=== PATIENT | male | born 1965 | race Caucasian/White ===

== ENCOUNTER → 2020-03-15 | Outpatient (CLI) | payer BC | END | disposition home or self-care (01) | LOC: LABPAT 12:46 | PROVIDERS: ATTEND Orthopaedic Surgery | DX: Z01.812 Encounter for preprocedural laboratory examination (principal) | CPT/HCPCS: 87070 ==

== ENCOUNTER 2020-04-09 11:54 | Day surgery (SDC) | payer BC ==
[2020-04-05 09:46] VITALS: BMI 35.7
--- NOTE | 2020-04-08 09:31 | HP ---
HISTORY AND PHYSICAL CHIEF COMPLAINT: Right knee pain. 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 He is having pain that increases with prolonged activity and stairs. He notes popping and giving way. He has tried medications in addition to injections with only partial temporary relief. He has also tried weight loss. PAST MEDICAL HISTORY: Significant for hypercholesterolemia, hypertension, and arthritis. PAST SURGICAL HISTORY: Significant for left knee arthroscopy. CURRENT MEDICATIONS: Crestor, Ally, Toprol, Actos. He denies drug allergies. FAMILY HISTORY: Noncontributory. SOCIAL HISTORY: Significant for previous tobacco use. 16 POINT REVIEW OF SYSTEMS: Otherwise reviewed and is noncontributory. PHYSICAL EXAMINATION: On examination, the patient is approximately 5 foot 10, 255 pounds of endomorphic habitus. HEENT: Exam is nonfocal. NECK: Supple. He has painless passive motion of the right hip. Straight leg raise is negative. Active motion right knee -12 to 95 degrees of flexion. He has a moderate effusion. He is tender about the medial joint line. Collaterals are stable, Wong is negative, Birdie's is equivocal. He has genu varum alignment. He does have an antalgic gait pattern. His distal neurovascular appears intact in the right lower extremity. Weightbearing notch, lateral and Merchant views of the right knee obtained in the office show severe medial compartment and patellofemoral compartment osteoarthrosis with [id number] changes. IMPRESSION: 1. Right knee severe medial patellar medial and patellofemoral compartment osteoarthrosis. 2. Increased body mass index. RECOMMENDATIONS: I talked to the patient at length regarding his condition and treatment options. At this point, he remains quite symptomatic because of pain related to his osteoarthrosis despite previous extensive conservative treatment. After thorough discussion, he opts to proceed with surgery. We will plan to proceed with right total knee arthroplasty. Risks and benefits were discussed at length in layman's terms. We will institute DVT prophylaxis postoperatively. The patient underwent preoperative medical evaluation by Dr. Vora. PETER / JANEY: [id number] /
[~2020-04-09 11:54] MED LIST: ACETAMINOPHEN TAB 500 MG TAB PO PRN; HYDROmorphone 0.5 MG/0.5 ML SYRINGE IVP PRN; LIDOCAINE 1% (10MG/ML) FOR IV START INTRADERMA PRN; MELOXICAM 7.5 MG TAB PO PRN; ONDANSETRON 4 MG/2 ML VIAL IVP ONE; TRANEXAMIC ACID 1,000 MG in SODIUM CHLORIDE 0.9% 100 ML IVPB PRN
[2020-04-09 12:28] LABS: Glucose,Whole Blood 143 mg/dL (75-99)
[2020-04-09] MEDS: LACTATED RINGERS 1,000 ML IV SCH (12:30)
[2020-04-09] MEDS ORDERED: DEXAMETHASONE SOD PHOSPHATE 4 MG/ML 1 ML VIAL IV ONE (12:35)
[2020-04-09] MEDS ORDERED: MIDAZOLAM 2 MG/2 ML VIAL IV ONE (12:41)
[2020-04-09] MEDS ORDERED: ROPIVACAINE 0.2%-NS ON-Q PUMP 1,090 MG, EMPTY PAIN BALL 1 EACH MISCELLANE PRN (12:55)
--- NOTE | 2020-04-09 12:57 | P.ANPRN ---
Procedure Note - Anesthesia - Nerve Block Performed Right Adductor Canal Time Out Performed: Yes (12:40) Date of Procedure: 04/09/20 Procedure Start Time: :40 Procedure Stop Time: : Location of Patient: PreOp Indication: Acute Post-Operative Pain, Requested by Surgeon (Dr Carmona) Sedation Type: Sedate with meaningful contact maintained Preparation: Sterile Prep, Sterile Dressing Position: Supine Catheter: Indwelling Needle Types: Pajunk Needle Gauge: 21 Ultrasound used to visualize needle placement: Yes Ultrasound used to observe medication spread: Yes Injectate: 0.5% Ropivacaine (see comment for volume) (20cc) Blood Aspirated: No Pain Paresthesia on Injection Noted: No Resistance on Injection: Normal Image Stored and Saved: Yes Events: Uneventful and Well Tolerated
[2020-04-09] MEDS ORDERED: ROPIVACAINE 246.25 MG, EPINEPHrine 0.5 MG, KETOROLAC 30 MG, cloNIDine HCL/PF 80 MCG, WA... MISCELLANE ONE ×5 (13:18)
[2020-04-09] MEDS ORDERED: fentaNYL (PF) 50 MCG/ML 2 ML AMP ONE (13:57)
[2020-04-09] MEDS ORDERED: PROPOFOL 10 MG/ML 20 ML VIAL IV ONE (13:57)
[2020-04-09] MEDS ORDERED: SODIUM CHLORIDE 0.9% 100 ML BAG ONE (13:57)
[2020-04-09] MEDS ORDERED: MIDAZOLAM 2 MG/2 ML VIAL ONE (13:57)
[2020-04-09] MEDS ORDERED: TRANEXAMIC ACID 1,000 MG/10 ML VIAL ONE (13:57)
[2020-04-09] MEDS ORDERED: LACTATED RINGERS 1,000 ML IV ONE (15:04)
[2020-04-09] MEDS ORDERED: HYDROmorphone 1 MG/ML 1 ML SYRINGE IVP PRN (15:56)
[2020-04-09] MEDS ORDERED: traMADol 50 MG TAB PO PRN (15:56)
[2020-04-09] MEDS ORDERED: ONDANSETRON 4 MG/2 ML VIAL IVP PRN (15:56)
[2020-04-09] MEDS ORDERED: ACETAMINOPHEN TAB 325 MG TAB PO PRN (15:56)
[2020-04-09] MEDS ORDERED: NALOXONE 0.4 MG/ML 1 ML VIAL IV PRN (15:56)
[2020-04-09] MEDS ORDERED: HYDROmorphone 0.5 MG/0.5 ML SYRINGE IVP PRN (15:56)
[2020-04-09] MEDS ORDERED: MAGNESIUM HYDROXIDE 2,400 MG/10 ML CUP PO PRN (15:56)
[2020-04-09] MEDS ORDERED: HYDROcodone/APAP 7.5-325MG 1 EACH TAB PO PRN (15:59)
--- NOTE | 2020-04-09 16:23 | P.OP ---
Date of Procedure: 04/09/20 Preoperative Diagnosis: Right knee severe tricompartmental osteoarthrosis Postoperative Diagnosis: Same Procedure(s) Performed: Right total knee arthroplastycementedposterior stabilized Implants: Depuy Attune size 7 cemented femoral component, size 7 cemented tibial component, 14 mm articular surface, 38 mm cemented patellar component. This a posterior stabilized implant. Anesthesia: regional, local, spinal Surgeon: Macho Carmona Administrator Of Home Health #1: Anup Paige Estimated Blood Loss (ml): 100 Pathology: other (Bone fragments) Condition: stable Disposition: PACU Indications for Procedure: The patient's 54-year-old male presents with progressive right knee pain secondary to osteoporosis despite conservative measures. Discussion of the risks and benefits of operative intervention versus continued conservative measures with patient. He opted to proceed with surgery. Operative risks to include infection, neurovascular injury, development of blood clots, possible fracture, possible component loosening, possible component failure and need for subsequent procedures was discussed. Informed consent was obtained. Operative Findings: As below Description of Procedure: The patient was brought to the operating room, and after induction of spinal anesthesia the right lower extremity was prepped and draped in a normal fashion. The tourniquet was inflated to 270 mm marker. A longitudinal incision extending 3 finger breaths above the superior pole of patella extending to the medial aspect the tibial tubercle was then made. The skin and subcutaneous tissues were divided sharply. Electrocautery was used for hemostasis. A medial parapatellar arthrotomy was performed. The medial soft tissues to include the superficial and deep portions of the medial collateral ligament were elevated subperiosteally. The patella was everted. A portion of the retropatellar fat pad was excised sharply. The anterior cruciate ligament was sacrificed. Blunt retractors were placed. A starting hole was made in the distal femur 1 cm anterior to the posterior cruciate ligament origin. An intramedullary femoral guide was then inserted planning on 5 valgus distal cut with 9 mm distal resection. The cutting block was pinned in place. The distal cut was then made. The posterior referencing sizing guide was utilized. I felt size 7 was most appropriate. 3 of external rotation was built into the system and verified off the trans-epicondylar axis and the posterior condyles. The cutting block was pinned in place. The anterior, posterior, and chamfer cuts then made. Bone fragments were removed. The intercondylar guide was placed and the notch cut was made with a sagittal saw. The bone block was removed in one fragment. The trial component was then placed. There is good anterior to posterior and medial to lateral fit. The distal peg holes were drilled. The trial component was removed. Attention was then paid towards preparing the proximal femur. An extra medullary guide was utilized in line with the tibial shaft and second metatarsal distally. I planned on to 2 mm resection from the medial compartment. The cutting block was pinned in place. The proximal tibial cut was then made. The bone was removed in one fragment. The remnants of the medial and lateral menisci were excised at the capsular junction with electrocautery. The tibia sized most appropriately at size 7. The trial femoral and tibial components were placed along with a 14 mm articular surface. I was able to obtain full flexion and extension with internal and external rotation. After several flexion and extension cycles, the tibial rotation was marked with electrocautery line with the medial one third of the tibial tubercle. Attention was then paid towards preparing the patella. A patella reamer was utilized taking stem to 14 mm of bone stock. A good flush cut was made. The patella sized most appropriately 38 mm. The peg holes were drilled. The trial components placed. I had good patellofemoral tracking with no hands technique. The trial components were then removed. The tibia was prepared in the appropriate rotation with appropriate drill and keel punch. The posterior osteophytes were removed with a curved osteotome. The flexion and extension gaps were checked and felt to be symmetric at 14 mm. A trial components were then removed. The posterior soft tissues were injected with ropivacaine. The bony surfaces were prepared with pulsatile lavage and dried. The tibial component was then cemented place was fully seated. Excess cement was removed. The femoral component cemented place and was fully seated. Excess cement was removed. The trial 14 mm articular surface was placed and the knee was put in full extension. The patella component was cemented place. After the cement had sufficiently hardened, the knee was again taken through a range of motion. Again I was able to obtain full flexion and extension with varus and valgus stress. The trial 14 mm articular surface was removed and the final one inserted. This was fully seated. Care was taken to avoid any soft tissue interposition. Pulsatile lavage was again utilized. The medial parapatellar arthrotomy was closed with #2 Ethibond suture. The tourniquet was deflated with approximately 70 minutes total tourniquet time. Final hemostasis was obtained with the cautery. There was minimal bleeding therefore a deep drain was not placed. The subcutaneous tissues were reapproximated with interrupted 2-0 Vicryl sutures. The skin was reapproximated with 3-0 subcuticular strata fix suture. Skin tape and adhesive was applied. A sterile dressing was applied. The patient was awoken from sedation and transferred to recovery room in good condition. Blood loss was estimated at 50 mL. No complications were incurred. Sponge and needle counts were correct at the end of the case. Tian GILMORE assisted during the major components of this case to include exposure, bone resection, implantation, and closure.
--- NOTE | 2020-04-09 16:44 | XR ---
EXAMINATION TYPE: XR knee limited RT DATE OF EXAM: 04/09/2020 COMPARISON: NONE HISTORY: Postop knee surgery TECHNIQUE: 2 views FINDINGS: There is right knee prosthesis. Components are in anatomic position. IMPRESSION: No complicating process seen.
[2020-04-09 16:56] LABS: Glucose,Whole Blood 154 mg/dL (75-99)
[2020-04-09] MEDS ORDERED: NAPROXEN 250 MG TAB PO PRN (19:18)
--- NOTE | 2020-04-09 19:29 | P.CONS ---
History of Present Illness - Reason for Consult Consult date: 04/09/20 Medical management Requesting physician: Macho Diaz - Chief Complaint Right total knee arthroplasty, hypertension, hyperlipidemia and diabetes - History of Present Illness 54-year-old male mildly overweight with past medical history of type 2 diabetes, hypertension, hyperlipidemia and obstructive sleep apnea who had injury of both knees at age 15 and 25 had developed to have significant damage and injury of the cartilage and ACL patient had conservative management for years and developed to have severe worsening [id number] of both knees worsening of the right than the left side ended up seen orthopedic and plan to do elective surgery of the right side which was done today successfully with no major complication. Patient was admitted to the floor after surgery hemodynamically stable pain is well controlled was started on Xarelto for an anticoagulation still on the pain management system for pain management along with hydrocodone at home meds were resume at this point. Review of Systems CONSTITUTIONAL: Well-developed no acute respiratory distress. EYES: No icterus sclerae, no conjunctivitis. EARS, NOSE, MOUTH, THROAT, and FACE: No sore throat, lymphadenopathy, carotid bruits or deformity. RESPIRATORY: No SOB cough or wheezes. CARDIOVASCULAR: No CP, Palpitation, PND, Orthopnea, or angina. GASTROINTESTINAL: No Abd pain, Nausea or vomiting, no Diarrhea or constipation, No GI Bleed, no distention or masses. GENITOURINARY: Negative for Hematuria or UTI, no kidney stones. INTEGUMENT/BREAST: Negative for any muscular injury with mild osteoarthritis.. Post right knee surgery HEMATOLOGIC/LYMPHATIC: Negative for bleed or purpura. MUSCULOSKELTAL: Negative for Myalgia or arthralgia. NEURLOGICAL: No LOC, Sz or syncope, blurred vision dizziness or abnormality.. BEHAVIORAL/PSYCH: Negative. ENDOCRINE: Negative. Social history: Patient does not smoke, narcotic abuse, no illicit drug use. His meds and live with his who works as a parcel post truck driver. Family history: His father is in his 79 had COPD, mother 76 of CAD, patient has 2 sister both are living and well 2 children with no major medical problem. Past Medical History Past Medical History: Diabetes Mellitus, Hypertension, Osteoarthritis (OA), Sleep Apnea/CPAP/BIPAP History of Any Multi-Drug Resistant Organisms: None Reported Past Surgical History: Hernia Repair Additional Past Surgical History / Comment(s): KIDNEY STONE REMOVED , UMBILICAL HERNIA , SURGERY FOR HEMATOMA -FOREHEAD , LEFT KNEE ARTHROSCOPIC , Past Anesthesia/Blood Transfusion Reactions: No Reported Reaction Smoking Status: Never smoker - Past Family History Mother Family Medical History: No Reported History Medications and Allergies Home Medications Medication Instructions Recorded Confirmed Type Ascorbic Acid [Vitamin C] 1,000 mg PO DAILY 04/05/20 04/09/20 History Cholecalciferol [Vitamin D3 (25 5,000 unit PO DAILY 04/05/20 04/09/20 History Mcg = 1000 Iu)] Metoprolol Succinate (ER) [Toprol 50 mg PO HS 04/05/20 04/09/20 History Xl] Multivitamins, Thera [Multivitamin 1 tab PO DAILY 04/05/20 04/09/20 History (formulary)] Naproxen Sod/Diphenhydramine 1 each PO HS PRN 04/05/20 04/09/20 History [Aleve Pm Caplet] Pioglitazone [Actos] 30 mg PO HS 04/05/20 04/09/20 History Rosuvastatin [Crestor] 20 mg PO HS 04/05/20 04/09/20 History Turmeric/Turmeric Root Extract 1 cap PO DAILY 04/05/20 04/09/20 History [Turmeric 450-50 mg Capsule] amLODIPine BES/OLMESARTAN MED 1 each PO HS 04/05/20 04/09/20 History [Ally 10-40 MG] Allergies Allergy/AdvReac Type Severity Reaction Status Date / Time No Known Allergies Allergy Verified 04/09/20 12:12 Physical Exam Vitals: Vital Signs Temp Pulse Pulse Resp BP BP Pulse Ox 04/09/20 18:26 98 F 85 19 133/81 95 04/09/20 18:00 79 16 130/81 96 04/09/20 17:30 83 16 133/82 96 04/09/20 17:00 72 16 115/62 96 04/09/20 16:45 75 16 114/62 96 04/09/20 16:30 70 18 112/58 96 04/09/20 16:18 97.1 F L 74 18 100/75 95 04/09/20 12:58 72 16 137/81 98 04/09/20 12:20 98.6 F 73 16 139/68 97 Intake and Output 04/09/20 04/09/20 04/09/20 06:59 14:59 22:59 Intake Total 1050 700 Output Total 750 Balance 1050 -50 Intake: IV 1050 700 Output: Urine 700 Estimated Blood Loss 50 Other: Weight 120.8 kg General Appearance: Alert, cooperative, no distress, appears stated age. Moderately overweight Neck HEENT: Supple, no lymphadenopathy, no thyroid enlargement, no carotid br uits. Lungs: Clear to auscultation without crackles or wheezes no rhonchi, no deformity. Chest Wall: Chest wall normal expansion with deep inspiration no tenderness and no deformity was found on exam, no costochondral pain or discomfort. Heart: Regular rate and rhythm, S1, S2 normal, no murmur, rub or gallop. Back: Symmetric, no curvature, ROM normal, no CVA tenderness. Abdomen: Soft, non-tender, bowel sounds active all four quadrants, no masses, no organomegaly. Extremities: Extremities normal, atraumatic, no cyanosis or edema. Right knee incision looks fine with no hematoma bleeding no Raissa tenderness. Pulses: 2+ and symmetric. Skin: Skin color, texture, tugor normal, no rashes or lesions. Neurologic: Alert oriented x3 cranial nerves II through XII intact, no motor deficit, no abnormal balance or gait. Results Labs: Abnormal Lab Results - Last 24 Hours (Table) 04/09/20 04/09/20 Range/Units 12:25 16:53 POC Glucose (mg/dL) 143 H 154 H (75-99) mg/dL Assessment and Plan Assessment: 1 status post right total knee arthroplasty: Successful surgery doing very well continue to watch patient with dynamic status, continue pain management, anticoagulation with Xarelto 10 mg a day for the next 2-4 weeks, resume home meds this point. 2 obstructive sleep apnea: Continue patient to use CPAP on regular basis. 3 hypertension: Patient has been doing very well on metoprolol along with amlodipine LOSARTAN 10/40 MG DAILY. 4 TYPE 2 DIABETES: ON PIOGLITAZONE 30 MG DAILY, ACCU-CHEK WITH SLIDING SCALES COVERAGE. 5 HYPERLIPIDEMIA: REMAIN ON CRESTOR 20 MG DAILY. 6 ANTICOAGULATION: CONTINUE PATIENT ON XARELTO. 7 GI PROPHYLAXIS: PATIENT WILL BE ON PEPCID 20 MG DAILY. 8 PAIN MANAGEMENT: CONTINUE PAIN MANAGEMENT SYSTEM ALONG WITH HYDROCODONE NEEDED. DR. DIAZ THANK YOU VERY MUCH FOR THE CONSULT IF I CAN BE ANY FURTHER HELP TO PLEASE LET ME KNOW.
[2020-04-09] MEDS ORDERED: diphenhydrAMINE 25 MG CAP PO PRN (19:31)
[2020-04-09] MEDS: ceFAZolin 3 GM in SODIUM CHLORIDE 0.9% 100 ML IVPB SCH (20:56)
[2020-04-09] MEDS ORDERED: METOPROLOL SUCCINATE (ER) 50 MG TAB.ER.24H PO SCH (21:00)
[2020-04-09] MEDS ORDERED: SENNOSIDES-DOCUSATE SODIUM 1 EACH TAB PO SCH (21:00)
[2020-04-09] MEDS ORDERED: amLODIPine 10 MG TAB PO SCH (21:00)
[2020-04-09] MEDS ORDERED: ATORVASTATIN 40 MG TAB PO SCH (21:00)
[2020-04-09] MEDS ORDERED: PIOGLITAZONE 30 MG TAB PO SCH (21:00)
[2020-04-09] MEDS ORDERED: LOSARTAN 50 MG TAB PO SCH (21:00)
[2020-04-10] MEDS: HYDROcodone/APAP 7.5-325MG 1 EACH TAB PO PRN ×3 (03:33→11:10)
[2020-04-10] MEDS: ceFAZolin 3 GM in SODIUM CHLORIDE 0.9% 100 ML IVPB SCH (05:48)
--- NOTE | 2020-04-10 05:54 | P.PN ---
Progress Note - Text Progress Note Date: 04/10/20 Postoperative day # 1 status post total knee arthroplasty, under spinal anesth esia, and adductor canal catheter placed for postoperative analgesia. Currently on ropivacaine 0.2% 8 mL per hour with continuous infusion. There is no erythema, and there is no tenderness at site of catheter insertion. VAS: 2/10 Breakthrough Meds: When necessary Percocet, as taken 5 mg of hydrocodone today Complications: None . Plan: Plan is to continue: Plans to continue the current settings. Patient will go home as planned.
[2020-04-10 06:41] LABS: Basophils % (A) 0 %; Eosinophils % (A) 0 %; HCT 39.6 % (39.0-53.0); HGB 13.1 gm/dL (13.0-17.5); Lymphocytes # (A) 1.9 k/uL (1.0-4.8); Lymphocytes % (A) 15 %; MCH 29.8 pg (25.0-35.0); MCHC 33.1 g/dL (31.0-37.0); MCV 89.9 fL (80.0-100.0); Mean Platelet Volume 7.4; Monocytes % (A) 8 %; Neutrophils # (A) 9.4 k/uL (1.3-7.7); Neutrophils % (A) 74 %; Platelet Count 224 k/uL (150-450); RDW 13.3 % (11.5-15.5); WBC 12.6 k/uL (3.8-10.6)
[2020-04-10] MEDS: LACTATED RINGERS 1,000 ML IV SCH (07:07)
[2020-04-10 07:21] LABS: Glucose,Whole Blood 73 mg/dL (75-99)
[2020-04-10 07:53] VITALS: BP 132/75; PULSE 71; RESP 16; TEMP 97.6
[2020-04-10] MEDS ORDERED: MULTIVITAMINS, THERA 1 EACH TAB PO SCH (09:00)
[2020-04-10] MEDS ORDERED: CHOLECALCIFEROL 1,000 UNIT TAB PO SCH (09:00)
[2020-04-10] MEDS ORDERED: RIVAROXABAN 10 MG TAB PO SCH (09:00)
[2020-04-10] MEDS ORDERED: ASCORBIC ACID 500 MG TAB PO SCH (09:00)
[2020-04-10] MEDS ORDERED: FAMOTIDINE 20 MG TAB PO SCH (09:00)
--- NOTE | 2020-04-10 09:55 | P.PN ---
Subjective Progress Note Date: 04/10/20 Principal diagnosis: Status post right total knee arthroplasty Patient is evaluated today at bedside, resting comfortably. His pain is well- controlled at this time. He did ambulate well with therapy. Currently denies any headaches, lightheadedness, chest pain or shortness of breath. Objective - Vital Signs Vital signs: Vital Signs Temp 97.6 F 04/10/20 06:56 Pulse 71 04/10/20 06:56 Resp 16 04/10/20 07:30 BP 132/75 04/10/20 06:56 Pulse Ox 97 04/10/20 06:56 Intake & Output 04/09/20 04/10/20 04/10/20 18:59 06:59 18:59 Intake Total 1750 450 Output Total 750 400 Balance 1000 50 Weight 120.8 kg 120.8 kg Intake: IV 1750 Intake, IV Titration 450 Amount Lactated Ringers 1,000 ml 450 @ 50 mls/hr IV .Q20H MATI Rx#:[id number] Output: Urine 700 400 Estimated Blood Loss 50 Other: # Voids 2 - Exam Right lower extremity: Incision is clean, dry, and intact. The exofin fusion tape is in good condition. There is minimal soft tissue swelling and ecchymosis surrounding the medial and lateral aspects of the incision. Calf is soft, no tenderness with palpation. Plantar flexion, dorsiflexion, EHL, FHL are intact. Sensory exam to light touch throughout the extremity is intact, dorsal pedis pulses 2+. - Labs CBC & Chem 7: 04/10/20 06:02 Labs: Abnormal Lab Results - Last 24 Hours (Table) 04/09/20 04/09/20 04/10/20 Range/Units 12:25 16:53 06:02 WBC 12.6 H (3.8-10.6) k/uL Neutrophils # 9.4 H (1.3-7.7) k/uL POC Glucose (mg/dL) 143 H 154 H (75-99) mg/dL 04/10/20 Range/Units 07:17 WBC (3.8-10.6) k/uL Neutrophils # (1.3-7.7) k/uL POC Glucose (mg/dL) 73 L (75-99) mg/dL Assessment and Plan Assessment: Status post right total knee arthroplasty Plan: Pain control, plan for discharge home on [place] 7.5 mg/325 mg DVT prophylaxis, Eliquis 2.5 mg twice a day for 2 weeks Wound care instructions were discussed Icing and elevating techniques discussed Medical recommendations Home health care after discharge Plan for discharge home today Time with Patient: Less than 30
--- NOTE | 2020-04-10 10:00 | P.DS ---
Providers Date of admission: 04/09/2020 Expected date of discharge: 04/10/20 Attending physician: Macho Carmona Primary care physician: Cornelio Vora [facility] Course: Date of admission: 04/09/2020 Date of discharge: 04/10/2020 Admission diagnosis: Status post right total knee arthroplasty Discharge diagnosis: Same Attending physician: Dr. Carmona Surgical procedures: Right total knee arthroplasty Brief history: Patient is a with D4-year-old male with a history of progressive primary right knee osteoarthritis. At this point patient has failed conservative treatment measures and has opted to proceed with a elective right total knee arthroplasty. Hospital course: Details of patient's surgery can be found in operative report. Patient tolerated the procedure well and was subsequently transported to orthopedic floor. Patient's orthopeidc and medical care was provided daily. Patient had daily laboratory tests performed for evaluation of overall blood counts. Patient had daily physical therapy to include strengthening range of motion as well as education with walker ambulation. Patient was treated with Eliquis for their postoperative DVT prophylaxis during their inpatient stay. Patient was noted to have a relatively uneventful postoperative course. Patient reported satisfactory pain control with oral pain medications by postoperative day 0. Patient showed satisfactory progress with physical therapy. Patient moved steadily through the program and had no difficulty meeting the goals by postoperative day 1. Given patient's otherwise satisfactory course and having met physical therapy goals, plan is to discharge patient home on postoperative day 1. Discharge condition/disposition: Patient will be discharged home in stable condition. Discharge medications: Instructions are given on resumption of patient's normal daily medications per primary care recommendation, in addition patient will be prescribed [place] 7.5 mg/325 mg, Colace 100 mg, Eliquis 2.5 mg. Discharge instructions: 1. Wound care and infection precautions, keep incision dry and covered while showering, no lotions, creams, moisturizers. No soaking, tubs, pools, hottubs. Do not scrub over the incision. 2. Weight-bear as tolerated with walker / cane until follow-up. 3. Ice and elevate when necessary. Do not exceed 20 minutes per hour with ice pack. 4. Utilize compression sleeve until seen at first follow up appointment. 5. Visiting nursing care. 6. Home physical therapy including home CPM. 7. Pain meds and anticoagulants per prescription. 8. Pain medication has potential to cause constipation. Increase oral fluid and fiber intake. Contact primary care provider if you have not had a bowel movement within 48 hours after discharge 9. No anti-inflammatory medication until discussed at first post operative visit, this including Motrin, Aleve, Mobic, Diclofenac 10. Follow up in office at 2 weeks postop with Tian Paige PA-C 11. Follow up with your primary care doctor 7-10 days after discharge. 12. Contact [facility] with any questions, . Procedures: Right total knee arthroplasty Patient Condition at Discharge: Good Plan - Discharge Summary Discharge Rx Participant: No New Discharge Prescriptions: New Apixaban [Eliquis] 2.5 mg PO BID #60 tab HYDROcodone/APAP 7.5-325MG [[place] 7.5] 1 - 2 each PO Q6HR PRN #42 tab PRN Reason: Pain Sennosides/Docusate Sodium [Senna Plus 8.6-50 mg Tablet] 1 each PO DAILY PRN #30 tablet PRN Reason: Constipation No Action Turmeric/Turmeric Root Extract [Turmeric 450-50 mg Capsule] 1 cap PO DAILY amLODIPine BES/OLMESARTAN MED [Ally 10-40 MG] 1 each PO HS Pioglitazone [Actos] 30 mg PO HS Rosuvastatin [Crestor] 20 mg PO HS Metoprolol Succinate (ER) [Toprol Xl] 50 mg PO HS Naproxen Sod/Diphenhydramine [Aleve Pm Caplet] 1 each PO HS PRN PRN Reason: FOR SLEEP AND PAIN Multivitamins, Thera [Multivitamin (formulary)] 1 tab PO DAILY Cholecalciferol [Vitamin D3 (25 Mcg = 1000 Iu)] 5,000 unit PO DAILY Ascorbic Acid [Vitamin C] 1,000 mg PO DAILY Discharge Medication List Ascorbic Acid [Vitamin C] 1,000 mg PO DAILY 04/05/20 [History] Cholecalciferol [Vitamin D3 (25 Mcg = 1000 Iu)] 5,000 unit PO DAILY 04/05/20 [History] Metoprolol Succinate (ER) [Toprol Xl] 50 mg PO HS 04/05/20 [History] Multivitamins, Thera [Multivitamin (formulary)] 1 tab PO DAILY 04/05/20 [History] Naproxen Sod/Diphenhydramine [Aleve Pm Caplet] 1 each PO HS PRN 04/05/20 [History] Pioglitazone [Actos] 30 mg PO HS 04/05/20 [History] Rosuvastatin [Crestor] 20 mg PO HS 04/05/20 [History] Turmeric/Turmeric Root Extract [Turmeric 450-50 mg Capsule] 1 cap PO DAILY 03/19 12/06 [History] amLODIPine BES/OLMESARTAN MED [Ally 10-40 MG] 1 each PO HS 04/05/20 [History] Apixaban [Eliquis] 2.5 mg PO BID #60 tab 04/10/20 [Rx] HYDROcodone/APAP 7.5-325MG [[place] 7.5] 1 - 2 each PO Q6HR PRN #42 tab 04/10/20 [Rx] Sennosides/Docusate Sodium [Senna Plus 8.6-50 mg Tablet] 1 each PO DAILY PRN #30 tablet 04/10/20 [Rx] Follow up Appointment(s)/Referral(s): Anup Paige PAC [PHYSICIAN AUTO MECHANIC SUPERVISOR] - 04/26/20 4:30 pm Cornelio Vora MD [Primary Care Provider] - 1 Week Activity/Diet/Wound Care/Special Instructions: Orthopedic Discharge Instructions: 1. Wound care and infection precautions, keep incision dry and covered while showering, no lotions, creams, moisturizers. No soaking, pools, hot tubs. Do not scrub over incision. 2. Weight-bear as tolerated with walker / cane until follow-up. 3. Ice and elevate when necessary. Do not exceed 20 minutes per hour with ice pack. 4. Utilize compression sleeve until seen at first follow up appointment. 5. Pain meds and anticoagulants per prescription. 6. Pain medication has potential to cause constipation. Increase oral fluid and fiber intake. Contact primary care provider if you have not had a bowel movement within 48 hours after discharge. 7. No anti-inflammatory medication until discussed at first post operative visit, this including Motrin, Aleve, Mobic, Diclofenac. 8. Follow up in office at 2 weeks postop with Tian Paige PA-C 9. Follow up with your primary care doctor 7-10 days after discharge. 10. Contact [facility] with any questions, . Discharge Disposition: HOME WITH HOME HEALTH SERVICES
[2020-04-10 11:49] LABS: Glucose,Whole Blood 206 mg/dL (75-99)
--- NOTE | 2020-04-10 14:03 | P.PN ---
Subjective 54-year-old male mildly overweight with past medical history of type 2 diabetes, hypertension, hyperlipidemia and obstructive sleep apnea who had injury of both knees at age 15 and 25 had developed to have significant damage and injury of the cartilage and ACL patient had conservative management for years and developed to have severe worsening osio-edz-wtur of both knees worsening of the right than the left side ended up seen orthopedic and plan to do elective surgery of the right side which was done today successfully with no major complication. Patient was admitted to the floor after surgery hemodynamically stable pain is well controlled was started on Xarelto for an anticoagulation still on the pain management system for pain management along with hydrocodone at home meds were resume at this point. 04/10: Patient was evaluated this morning, noted to be resting quite comfortably in bed, no acute distress, reports pain is well controlled. He denies complaints of chest pain or shortness of breath. He has been up with therapy. Incentive spirometer was encouraged, he continues on Eliquis for DVT prophylaxis, plans on discharge home today Objective - Vital Signs Vital signs: Vital Signs Temp 97.6 F 04/10/20 06:56 Pulse 71 04/10/20 06:56 Resp 16 04/10/20 07:30 BP 132/75 04/10/20 06:56 Pulse Ox 97 04/10/20 06:56 Intake & Output 04/09/20 04/10/20 04/10/20 18:59 06:59 18:59 Intake Total 1750 450 Output Total 750 400 Balance 1000 50 Weight 120.8 kg 120.8 kg Intake: IV 1750 Intake, IV Titration 450 Amount Lactated Ringers 1,000 ml 450 @ 50 mls/hr IV .Q20H MATI Rx#:[id number] Output: Urine 700 400 Estimated Blood Loss 50 Other: # Voids 2 - Exam General Appearance: Alert, cooperative, no distress, appears stated age. Neck HEENT: Supple, no lymphadenopathy, no thyroid enlargement, no carotid bruit s. Lungs: Clear to auscultation without crackles or wheezes no rhonchi, no deformity. Chest Wall: Chest wall normal expansion with deep inspiration no tenderness and no deformity was found on exam, no costochondral pain or discomfort. Heart: Regular rate and rhythm, S1, S2 normal, no murmur, rub or gallop. Back: Symmetric, no curvature, ROM normal, no CVA tenderness. Abdomen: Soft, non-tender, bowel sounds active all four quadrants, no masses, no organomegaly. Extremities: Extremities normal, atraumatic, no cyanosis or edema. Right knee incision looks fine with no hematoma bleeding no Raissa tenderness. Pulses: 2+ and symmetric. Skin: Skin color, texture, tugor normal, no rashes or lesions. Neurologic: Alert oriented x3 cranial nerves II through XII intact, no motor deficit, no abnormal balance or gait. - Labs CBC & Chem 7: 04/10/20 06:02 Labs: Abnormal Lab Results - Last 24 Hours (Table) 04/09/20 04/10/20 04/10/20 Range/Units 16:53 06:02 07:17 WBC 12.6 H (3.8-10.6) k/uL Neutrophils # 9.4 H (1.3-7.7) k/uL POC Glucose (mg/dL) 154 H 73 L (75-99) mg/dL 04/10/20 Range/Units 11:47 WBC (3.8-10.6) k/uL Neutrophils # (1.3-7.7) k/uL POC Glucose (mg/dL) 206 H (75-99) mg/dL Assessment and Plan Plan: 1 status post right total knee arthroplasty: Successful surgery doing very well continue to watch patient with dynamic status, continue pain management, anticoagulation with Xarelto 10 mg a day for the next 2-4 weeks, resume home meds this point. 2 obstructive sleep apnea: Continue patient to use CPAP on regular basis. 3 hypertension: Patient has been doing very well on metoprolol along with amlodipine LOSARTAN 10/40 MG DAILY. 4 TYPE 2 DIABETES: ON PIOGLITAZONE 30 MG DAILY, ACCU-CHEK WITH SLIDING SCALES COVERAGE. 5 HYPERLIPIDEMIA: REMAIN ON CRESTOR 20 MG DAILY. 6 ANTICOAGULATION: CONTINUE PATIENT ON XARELTO. 7 GI PROPHYLAXIS: PATIENT WILL BE ON PEPCID 20 MG DAILY. 8 PAIN MANAGEMENT: CONTINUE PAIN MANAGEMENT SYSTEM ALONG WITH HYDROCODONE NEEDED. DR. DIAZ THANK YOU VERY MUCH FOR THE CONSULT IF I CAN BE ANY FURTHER HELP TO PLEASE LET ME KNOW. The above impression and plan of care have been discussed and directed by signing physician. Alia Bernabe nurse practitioner acting as scribe for signing physician.
== END 2020-04-10 13:05 | disposition home health service (06) ==
LOC: OR 11:54 → 4SSUR 15:53 → OR 04-10 13:05
PROVIDERS: ATTEND Orthopaedic Surgery
DX: M17.11 Unilateral primary osteoarthritis, right knee (principal); M81.0 Age-related osteoporosis without current pathological fracture; I10 Essential (primary) hypertension; E11.9 Type 2 diabetes mellitus without complications; E78.00 Pure hypercholesterolemia, unspecified; E78.5 Hyperlipidemia, unspecified; E55.9 Vitamin D deficiency, unspecified; G47.33 Obstructive sleep apnea (adult) (pediatric); Z79.01 Long term (current) use of anticoagulants; Z99.89 Dependence on other enabling machines and devices; Z87.442 Personal history of urinary calculi; Z98.890 Other specified postprocedural states; Z87.891 Personal history of nicotine dependence; Z79.84 Long term (current) use of oral hypoglycemic drugs; Z79.899 Other long term (current) drug therapy; Z82.49 Family history of ischemic heart disease and other diseases of the circulatory system
CPT/HCPCS: 97110; 97161; 64448; 76942; 85025; 88300; 73560; 27447; C1776; C1713; J2250; J0171; J1100; J0690 ×2; J2405; J3010; J1885; J2795 ×2; J2704; J0735

== ENCOUNTER → 2021-03-17 | Outpatient (CLI) | payer BC | END | disposition home or self-care (01) | LOC: LABWHC1 08:44 | PROVIDERS: ATTEND Orthopaedic Surgery | DX: Z01.812 Encounter for preprocedural laboratory examination (principal); M17.12 Unilateral primary osteoarthritis, left knee | CPT/HCPCS: 87070 ==

== ENCOUNTER 2021-04-08 11:01 | Day surgery (SDC) | payer BC ==
--- NOTE | 2021-04-07 09:46 | HP ---
HISTORY AND PHYSICAL CHIEF COMPLAINT: Left knee pain. HISTORY OF PRESENT ILLNESS: The patient is a 55-year-old male who presents with progressive left knee pain for the past several years, worsening recently. He notes medial pain with weightbearing activities. He has intermittent swelling, locking, and giving out. He has tried medications and other modalities without much relief. PAST MEDICAL HISTORY: Significant for arthritis, hypertension, and vzn-nuoqiki-rebjitqqd diabetes. SURGICAL HISTORY: Significant for right total knee arthroplasty, left knee arthroscopy. CURRENT MEDICATIONS: Ally, Crestor, Toprol, and Actos. ALLERGIES: He denies drug allergies. FAMILY HISTORY: Noncontributory. SOCIAL HISTORY: Significant for previous tobacco use. However he quit in 1984. REVIEW OF SYSTEMS: Sixteen-point review of systems otherwise reviewed and is noncontributory. PHYSICAL EXAMINATION: On examination, the patient is approximately 5 foot 10, 240 pounds of endomorphic habitus. HEENT exam is nonfocal. NECK is supple. He has painless passive motion of his left hip. Straight leg raise is negative. Active motion left knee full -10 to 100 degrees of flexion. He has a mild effusion. He is tender over the medial joint line. Collaterals are stable, Wong is negative, Birdie's is equivocal. He has genu varum alignment. His distal neurovascular exam appears intact in the left lower extremity. Weightbearing notch, lateral and Merchant views left knee obtained in the office show severe medial patellofemoral compartment narrowing with stac-zz-jchu changes and subchondral sclerosis. IMPRESSION: Left knee severe medial and patellofemoral compartment osteoarthrosis. RECOMMENDATIONS: I talked to the patient at length regarding his condition along with treatment options. At this point, he remains quite symptomatic despite conservative measures. After thorough discussion, he opts to proceed with surgery. We will plan to proceed with left total knee arthroplasty. Risks and benefits were discussed at length in layman's terms. We will institute DVT prophylaxis. MMODL / IJN: [id number] /
[2021-04-07 10:43] VITALS: BMI 34.5
[2021-04-08 11:43] LABS: Glucose,Whole Blood 234 mg/dL (75-99)
[2021-04-08] MEDS: LACTATED RINGERS 1,000 ML IV SCH (11:48)
[2021-04-08] MEDS ORDERED: fentaNYL (PF) 50 MCG/ML 5 ML AMP IV ONE (12:01)
[2021-04-08] MEDS ORDERED: MIDAZOLAM 2 MG/2 ML VIAL IV ONE (12:01)
[2021-04-08] MEDS ORDERED: PROPOFOL 10 MG/ML 20 ML VIAL IV ONE (13:25)
[2021-04-08] MEDS ORDERED: ePHEDrine 50 MG/ML 1 ML AMP ONE (13:25)
[2021-04-08] MEDS ORDERED: TRANEXAMIC ACID 1,000 MG/10 ML VIAL ONE (13:25)
[2021-04-08] MEDS ORDERED: MIDAZOLAM 2 MG/2 ML VIAL ONE (13:25)
[2021-04-08] MEDS ORDERED: SODIUM CHLORIDE 0.9% (PF) 10 ML VIAL ONE (13:25)
[2021-04-08] MEDS ORDERED: fentaNYL (PF) 50 MCG/ML 2 ML AMP ONE (13:25)
[2021-04-08] MEDS ORDERED: ROPIVACAINE 5 MG/ML 30 ML VIAL ONE (13:25)
[2021-04-08] MEDS ORDERED: SODIUM CHLORIDE 0.9% 100 ML BAG ONE (13:25)
[2021-04-08] MEDS ORDERED: ceFAZolin 1,000 MG in SODIUM CHLORIDE 0.9% 1,000 ML IRRIGATION ONE (13:54)
[2021-04-08] MEDS ORDERED: HYDROcodone/APAP 5-325MG 1 EACH TAB PO PRN (15:25)
[2021-04-08] MEDS ORDERED: NALOXONE 0.4 MG/ML 1 ML VIAL IV PRN (15:25)
[2021-04-08] MEDS ORDERED: HYDROmorphone 0.5 MG/0.5 ML SYRINGE IVP PRN (15:25)
[2021-04-08] MEDS ORDERED: LACTATED RINGERS 1,000 ML IV ONE (15:51)
--- NOTE | 2021-04-08 15:59 | P.OP ---
Date of Procedure: 04/08/21 Preoperative Diagnosis: Left knee severe tricompartmental osteoarthrosis Postoperative Diagnosis: Same Procedure(s) Performed: Left total knee arthroplastyposterior stabilizedcemented Implants: Depuy Attune size 7 cemented femoral component, size 7 cemented tibial component, 13 mm articular surface, 38 mm cemented patellar component. This is a posterior stabilized implant. Anesthesia: regional, spinal Surgeon: Macho Carmona Concrete Mixer Truck Driver #1: Rasheed Lopez Estimated Blood Loss (ml): 50 Pathology: other (Bone fragments) Condition: stable Disposition: PACU Indications for Procedure: The patient's 55-year-old male who presents with progressive left knee pain secondary to osteoarthrosis despite conservative measures. A discussion of the risks and benefits of operative intervention versus continued conservative measures was made with patient. He opted proceed with surgery. Operative risks to include infection, neurovascular injury, development blood clots, fracture, component loosening/failure need for subsequent procedures was discussed. Informed consent was obtained. Operative Findings: As below Description of Procedure: The patient was brought to the operating room, and after induction of spinal anesthesia the left lower extremity was prepped and draped in a normal fashion. The tourniquet was inflated to 270 mm marker. A longitudinal incision extending 3 finger breaths above the superior pole of patella extending to the medial aspect the tibial tubercle was then made. The skin and subcutaneous tissues were divided sharply. Electrocautery was used for hemostasis. A medial parapatellar arthrotomy was performed. The medial soft tissues to include the superficial and deep portions of the medial collateral ligament were elevated subperiosteally. The patella was everted. A portion of the retropatellar fat pad was excised sharply. The anterior cruciate ligament was sacrificed. Blunt retractors were placed. A starting hole was made in the distal femur 1 cm anterior to the posterior cruciate ligament origin. An intramedullary femoral guide was then inserted planning on 5 valgus distal cut with 9 mm distal resection. The cutting block was pinned in place. The distal cut was then made. The posterior referencing sizing guide was utilized. I felt size 7 was most appropriate. 3 of external rotation was built into the system and verified off the trans-epicondylar axis and the posterior condyles. The cutting block was pinned in place. The anterior, posterior, and chamfer cuts then made. Bone fragments were removed. The intercondylar guide was placed and the notch cut was made with a sagittal saw. The bone block was removed in one fragment. The trial component was then placed. There is good anterior to posterior and medial to lateral fit. The distal peg holes were drilled. The trial component was removed. Attention was then paid towards preparing the proximal femur. An extra medullary guide was utilized in line with the tibial shaft and second metatarsal distally. I planned on 2 mm resection from the medial compartment. The cutting block was pinned in place. The proximal tibial cut was then made. The bone was removed in one fragment. The remnants of the medial and lateral menisci were excised at the capsular junction with electrocautery. The tibia sized most appropriately at size 7. The trial femoral and tibial components were placed along with a 13 mm articular surface. I was able to obtain full flexion and extension with internal and external rotation. After several flexion and extension cycles, the tibial rotation was marked with electrocautery line with the medial one third of the tibial tubercle. Attention was then paid towards preparing the patella. A patella reamer was utilized taking stem to 14 mm of bone stock. A good flush cut was made. The patella sized most appropriately 38 mm. The peg holes were drilled. The trial components placed. I had good patellofemoral tracking with no hands technique. The trial components were then removed. The tibia was prepared in the appropriate rotation with appropriate drill and keel punch. The posterior osteophytes were removed with a curved osteotome. The flexion and extension gaps were checked and felt to be symmetric at 13 mm. A trial components were then removed. The bony surfaces were prepared with pulsatile lavage and dried. The tibial component was then cemented place was fully seated. Excess cement was removed. The femoral component cemented place and was fully seated. Excess cement was removed. The trial 13 mm articular surface was placed and the knee was put in full extension. The patella component was cemented place. After the cement had sufficiently hardened, the knee was again taken through a range of motion. Again I was able to obtain full flexion and extension with varus and valgus stress. The trial 13 mm articular surface was removed and the final one inserted. This was fully seated. Care was taken to avoid any soft tissue interposition. Pulsatile lavage was again utilized. The medial parapatellar arthrotomy was closed with #2 Ethibond suture. The tourniquet was deflated with approximately 60 minutes total tourniquet time. Final hemostasis was obtained with the cautery. There was minimal bleeding therefore a deep drain was not placed. The subcutaneous tissues were reapproximated with interrupted 2-0 Vicryl sutures. The skin was reapproximated with 3-0 subcuticular strata fix suture. Skin tape and adhesive was applied. A sterile dressing was applied. The patient was awoken from sedation and transferred to recovery room in good condition. Blood loss was estimated at 50 mL. No complications were incurred. Sponge and needle counts were correct at the end of the case. Rasheed GILMORE assisted during the major components of this case to include exposure, bone resection, implantation, and closure.
[2021-04-08] MEDS ORDERED: ROPIVACAINE 0.2%-NS ON-Q PUMP 1,090 MG, EMPTY PAIN BALL 1 EACH MISCELLANE PRN (16:05)
--- NOTE | 2021-04-08 16:33 | XR ---
"EXAMINATION TYPE: XR knee limited LT DATE OF EXAM: 04/08/2021 CLINICAL HISTORY: Left knee pain and arthritis status post total knee replacement. TECHNIQUE: Portable AP and crosstable lateral views of the left knee are obtained immediately postop eratively. COMPARISON: None FINDINGS: Metallic hardware from total left knee arthroplasty is seen and appears satisfactory in al ignment and position. There is evidence of recent surgery with diffuse subcutaneous gas and soft tis cordelia swelling noted. There is 7 mm linear density suspect retained suture or possibly wire fragment an terior medial aspect of the right knee joint. IMPRESSION: As above. A Yellow level critical message alert has been initiated for Macho Carmona MD via the [employer] [address] 0 | Critical Results System on 04/08/2021 4:31 PM. This message alert has been sent to Macho Carmona MD via the preferences provided by the clinician for the receipt of Radiology Critical Findings. Ms ssage ID [id number]."
[2021-04-08 16:38] LABS: Glucose,Whole Blood 179 mg/dL (75-99)
--- NOTE | 2021-04-08 17:56 | P.ANPRN ---
Procedure Note - Anesthesia - Nerve Block Performed Left Adductor Canal Infusion Time Out Performed: Yes Date of Procedure: 04/08/21 Procedure Start Time: 12:34 Procedure Stop Time: 12:40 Location of Patient: PreOp Indication: Acute Post-Operative Pain, Dx/Pain Location, Requested by Surgeon Specifically requested for management of pain by : Macho Carmona Sedation Type: Sedate with meaningful contact maintained Preparation: Sterile Prep, Sterile Dressing Position: Supine Catheter: Indwelling Needle Types: Pajunk Needle Gauge: 21 Ultrasound used to visualize needle placement: Yes Ultrasound used to observe medication spread: Yes Injectate: 0.5% Ropivacaine (see comment for volume) Blood Aspirated: No Pain Paresthesia on Injection Noted: No Resistance on Injection: Normal Image Stored and Saved: Yes Events: Uneventful and Well Tolerated (20cc 0.5% Ropivacaine)
--- NOTE | 2021-04-08 17:57 | P.ANPRN ---
Procedure Note - Anesthesia - Nerve Block Performed Left iPack Single Time Out Performed: Yes Date of Procedure: 04/08/21 Procedure Start Time: 12:41 Procedure Stop Time: 12:46 Location of Patient: PreOp Indication: Acute Post-Operative Pain, Dx/Pain Location, Requested by Surgeon Specifically requested for management of pain by : Macho Carmona Sedation Type: Sedate with meaningful contact maintained Preparation: Sterile Prep Position: Supine Catheter: None Needle Types: [employer] Needle Gauge: 21 Ultrasound used to visualize needle placement: Yes Ultrasound used to observe medication spread: Yes Injectate: 0.5% Ropivacaine (see comment for volume) Blood Aspirated: No Pain Paresthesia on Injection Noted: No Resistance on Injection: Normal Image Stored and Saved: Yes Events: Uneventful and Well Tolerated (10cc 0.5% ropivacaine with 10cc NS)
[2021-04-08] MEDS ORDERED: diphenhydrAMINE 50 MG/ML 1 ML VIAL IVP ONE (18:20)
[2021-04-08] MEDS ORDERED: MORPHINE SULFATE 4 MG/ML SYRINGE IVP ONE (18:20)
[2021-04-08] MEDS ORDERED: LOSARTAN 50 MG TAB PO SCH ×2 (21:00→22:15)
[2021-04-08] MEDS ORDERED: SENNOSIDES-DOCUSATE SODIUM 1 EACH TAB PO SCH (21:00)
[2021-04-08] MEDS: ENOXAPARIN 30 MG/0.3 ML SYRINGE SQ SCH (21:26)
[2021-04-08] MEDS ORDERED: METOPROLOL SUCCINATE (ER) 50 MG TAB.ER.24H PO SCH (22:15)
[2021-04-08] MEDS ORDERED: amLODIPine 10 MG TAB PO SCH (22:15)
[2021-04-08] MEDS: HYDROcodone/APAP 7.5-325MG 1 EACH TAB PO PRN (22:16)
--- NOTE | 2021-04-08 22:22 | P.CONS ---
History of Present Illness - Reason for Consult Consult date: 04/08/21 - History of Present Illness Patient is a 55-year-old male with a PMH of type II DM, hypertension, and hyperlipidemia who was admitted for elective left knee replacement. And underwent the procedure earlier today without any immediate postoperative complications. He reported ongoing pain of 6 out of 10 at the time of interview at the left knee. He denied any additional complaints. He denied chest discomfort, shortness with, fever, chills, cough, sore throat, nausea, vomiting, abdominal pain, diarrhea. Reports compliance with all his medications at home. Reports that he has passed urine but has not passed gas or had a bowel movement as of yet. Review of systems: Pertinent positives and negatives as discussed in HPI, a complete review of systems was performed and all other systems are negative. Physical examination: General: non toxic, no distress, appears at stated age, obese Derm: no unusual rashes/lesions no unusual ecchymoses, warm, dry Head: atraumatic, normocephalic, symmetric Eyes: EOMI, no lid lag, anicteric sclera, pupils equal round reactive to light ENT: Nose and ears atraumatic, no thrush, no pharyngeal erythema Neck: No thyromegaly, no cervical lymphadenopathy, trachea midline, supple Mouth: no lip lesion, mucus membranes moist Cardiovascular: S1S2 reg, no murmur, positive posterior tibial pulse bilateral, no edema, capillary refill less than 2 seconds Lungs: CTA bilateral, no rhonchi, no rales , no accessory muscle use Abdominal: soft, nontender to palpation, no guarding, no appreciable organomegaly, normal bowel sounds Ext: no gross muscle atrophy, muscle strength 5 out of 5 in all 4 extremities except left lower extremity postoperatively, left knee Merlin bandage in place, no contractures, Neuro: CN II-XI grossly intact, light touch intact all 4 extremities, finger to nose within normal limits, Psych: Alert, oriented, appropriate affect Assessment/plan Chronic conditions: Hypertension, hyperlipidemia type II DM -Continue with home medications -Insulin sliding scale blood glucose monitoring Status post left total knee replacement -Management including pain control as per the surgery service We appreciate this opportunity to be involved in this patient's care. We will follow the patient with you. For any further questions, please not hesitate to contact the sound inpatient team. Past Medical History Past Medical History: Diabetes Mellitus, Hyperlipidemia, Hypertension, Osteoarthritis (OA), Sleep Apnea/CPAP/BIPAP Additional Past Medical History / Comment(s): uses CPAP, kidney stones History of Any Multi-Drug Resistant Organisms: None Reported Past Surgical History: Hernia Repair, Joint Replacement Additional Past Surgical History / Comment(s): right knee replaced, surg. for kidney stones, left knee athroscopy, surg. for hematoma-forehead Past Anesthesia/Blood Transfusion Reactions: No Reported Reaction Smoking Status: Never smoker - Past Family History Mother Family Medical History: No Reported History Medications and Allergies Home Medications Medication Instructions Recorded Confirmed Type Ascorbic Acid [Vitamin C] 1,000 mg PO DAILY 04/05/20 04/07/21 History Cholecalciferol [Vitamin D3 (25 5,000 unit PO DAILY 04/05/20 04/07/21 History Mcg = 1000 Iu)] Metoprolol Succinate (ER) [Toprol 50 mg PO HS 04/05/20 04/07/21 History Xl] Multivitamins, Thera [Multivitamin 1 tab PO DAILY 04/05/20 04/07/21 History (formulary)] Rosuvastatin [Crestor] 20 mg PO HS 04/05/20 04/07/21 History Turmeric/Turmeric Root Extract 1 cap PO DAILY 04/05/20 04/07/21 History [Turmeric 450-50 mg Capsule] amLODIPine BES/OLMESARTAN MED 1 each PO HS 04/05/20 04/07/21 History [Ally 10-40 MG] Glimepiride [Amaryl] 2 mg PO AC-BRKFST 04/07/21 04/08/21 History Ubidecarenone [Co Q-10] 200 mg PO DAILY 04/07/21 04/07/21 History Allergies Allergy/AdvReac Type Severity Reaction Status Date / Time No Known Allergies Allergy Verified 04/08/21 11:22 Physical Exam Vitals: Vital Signs Temp Pulse Pulse Resp BP Pulse Ox 04/08/21 20:14 97.7 F 87 20 133/78 94 L 04/08/21 18:36 69 16 146/92 98 04/08/21 17:45 64 16 135/76 95 04/08/21 17:30 57 L 16 118/72 96 04/08/21 17:15 55 L 16 126/72 96 04/08/21 17:01 68 16 116/68 94 L 04/08/21 16:49 53 L 16 114/70 93 L 04/08/21 16:30 57 L 16 113/69 97 04/08/21 16:15 61 16 110/72 92 L 04/08/21 15:52 97.0 F L 57 L 16 94/66 95 04/08/21 12:30 65 16 140/74 99 04/08/21 11:23 97.1 F L 67 17 146/85 67 L Intake and Output 04/08/21 04/08/21 04/08/21 06:59 14:59 22:59 Intake Total 1051 300 Output Total 50 Balance 1051 250 Intake: IV 1051 300 Output: Estimated Blood Loss 50 Results Labs: Abnormal Lab Results - Last 24 Hours (Table) 04/08/21 04/08/21 Range/Units 11:31 16:36 POC Glucose (mg/dL) 234 H 179 H (75-99) mg/dL
[2021-04-08] MEDS ORDERED: ATORVASTATIN 80 MG TAB PO SCH (22:30)
[2021-04-09 07:49] LABS: Glucose,Whole Blood 245 mg/dL (75-99)
[2021-04-09] MEDS: INSULIN ASPART (NovoLOG) 100 UNIT/ML VIAL SQ SCH ×2 (07:57→12:01)
[2021-04-09] MEDS: ENOXAPARIN 30 MG/0.3 ML SYRINGE SQ SCH (07:58)
[2021-04-09] MEDS: LACTATED RINGERS 1,000 ML IV SCH (08:03)
[2021-04-09] MEDS: HYDROcodone/APAP 7.5-325MG 1 EACH TAB PO PRN ×2 (08:15→14:03)
--- NOTE | 2021-04-09 09:49 | P.PN ---
Progress Note - Text Progress Note Date: 04/09/21 Patient seen and examined at bedside POD 1 s/p total knee replacement with adductor canal catheter. Patient is sitting up and reports minimal pain. He is able to ambulate and use the restroom without difficulty. The pain he reports pain under his knee that is controlled with oral medication . He is not feeling pain on the top of his knee. He has no motor deficits and sensory deficits are within normal. Site is clean and dry without erythema. Continue pain pump at current rate. Patient denies ARGUELLO, F/C, parathesias, N/V. Patient is acceptable for discharge when primary team allows.
--- NOTE | 2021-04-09 10:01 | P.DS ---
Providers Date of admission: 04/08/2021 Expected date of discharge: 04/09/21 Attending physician: Macho Carmona Consults: 04/08/21 15:27 Consult Physician Routine Consulting Provider: Tami Winslow Consult Reason/Comments: Medical Management s/p left total knee arthroplasty Do you want consulting provider notified?: Yes Primary care physician: Cornelio Vora Hospital Course: Date of admission: 04/08/2021 Date of discharge: 04/09/2021 Admission diagnosis: Left knee osteoarthritis Discharge diagnosis: Same Attending physician: Dr. Carmona Surgical procedures: Left total knee arthroplasty Brief history: Patient is a 51-year-old male with a history of progressive primary left knee osteoarthritis. At this point patient has failed conservative treatment measures and has opted to proceed with a elective left total knee arthroplasty. Hospital course: Details of patient's surgery can be found in operative report. Patient tolerated the procedure well and was subsequently transported to orthopedic floor. Patient's orthopeidc and medical care was provided daily. Patient had daily laboratory tests performed for evaluation of overall blood counts. Patient had daily physical therapy to include strengthening range of motion as well as education with walker ambulation. Patient was treated with Lovenox for their postoperative DVT prophylaxis during their inpatient stay. Patient was noted to have a relatively uneventful postoperative course. Patient reported satisfactory pain control with oral pain medications by postoperative day 1. Patient showed satisfactory progress with physical therapy. Patient moved steadily through the program and had no difficulty meeting the goals by postoperative day 1. Given patient's otherwise satisfactory course and having met physical therapy goals, plan is to discharge patient home on postoperative day 1. Discharge condition/disposition: Patient will be discharged home in stable condition. Discharge medications: Instructions are given on resumption of patient's normal daily medications per primary care recommendation, in addition patient will be prescribed Homer 7.5 mg/325 mg; Colace; patient already has Eliquis at home. Discharge instructions: 1. Wound care and infection precautions, keep incision dry and covered while showering, no lotions, creams, moisturizers. No soaking, tubs, pools, hottubs. Do not scrub over the incision. 2. Weight-bear as tolerated with walker / cane until follow-up. 3. Ice and elevate when necessary. Do not exceed 20 minutes per hour with ice pack. 4. Utilize compression sleeve until seen at first follow up appointment. 5. Visiting nursing care. 6. Home physical therapy including home CPM. 7. Pain meds and anticoagulants per prescription. 8. Pain medication has potential to cause constipation. Increase oral fluid and fiber intake. Contact primary care provider if you have not had a bowel movement within 48 hours after discharge 9. No anti-inflammatory medication until discussed at first post operative visit, this including Motrin, Aleve, Mobic, Diclofenac. 10. Follow up in office at 2 weeks postop with Tian Paige PA-C / Rasheed Lopez PA-C 11. Follow up with your primary care doctor 7-10 days after discharge. 12. Contact [facility] with any questions, . Keep incision clean, dry, intact. While showering, cover mesh tape with Saran wrap/plastic bag. Keep mesh tape on until follow-up appointment in 2 weeks Medications: Homer 7.5 mg/325 mg; Colace; patient already has Eliquis at home for DVT ppx. Assessment: Left knee osteoarthritis Procedures: Left total knee arthroplasty Patient Condition at Discharge: Good Plan - Discharge Summary Discharge Rx Participant: No New Discharge Prescriptions: New Docusate [Colace] 100 mg PO DAILY #30 capsule HYDROcodone/APAP 7.5-325MG [Homer 7.5] 1 - 2 each PO Q6HR PRN #36 tab PRN Reason: Pain No Action Turmeric/Turmeric Root Extract [Turmeric 450-50 mg Capsule] 1 cap PO DAILY amLODIPine BES/OLMESARTAN MED [Ally 10-40 MG] 1 each PO HS Rosuvastatin [Crestor] 20 mg PO HS Metoprolol Succinate (ER) [Toprol Xl] 50 mg PO HS Multivitamins, Thera [Multivitamin (formulary)] 1 tab PO DAILY Cholecalciferol [Vitamin D3 (25 Mcg = 1000 Iu)] 5,000 unit PO DAILY Ascorbic Acid [Vitamin C] 1,000 mg PO DAILY Ubidecarenone [Co Q-10] 200 mg PO DAILY Glimepiride [Amaryl] 2 mg PO AC-BRKFST Discharge Medication List Ascorbic Acid [Vitamin C] 1,000 mg PO DAILY 04/05/20 [History] Cholecalciferol [Vitamin D3 (25 Mcg = 1000 Iu)] 5,000 unit PO DAILY 04/05/20 [History] Metoprolol Succinate (ER) [Toprol Xl] 50 mg PO HS 04/05/20 [History] Multivitamins, Thera [Multivitamin (formulary)] 1 tab PO DAILY 04/05/20 [History] Rosuvastatin [Crestor] 20 mg PO HS 04/05/20 [History] Turmeric/Turmeric Root Extract [Turmeric 450-50 mg Capsule] 1 cap PO DAILY 04/05/20 [History] amLODIPine BES/OLMESARTAN MED [Ally 10-40 MG] 1 each PO HS 04/05/20 [History] Glimepiride [Amaryl] 2 mg PO AC-BRKFST 04/07/21 [History] Ubidecarenone [Co Q-10] 200 mg PO DAILY 04/07/21 [History] Apixaban [Eliquis] 2.5 mg PO BID 04/09/21 [History] Docusate [Colace] 100 mg PO DAILY #30 capsule 04/09/21 [Rx] HYDROcodone/APAP 7.5-325MG [Homer 7.5] 1 - 2 each PO Q6HR PRN #36 tab 04/09/21 [Rx] Follow up Appointment(s)/Referral(s): Rasheed Lopez, PAC [PHYSICIAN ARCHITECTURAL SALES CONSULTANT] - [address] [facility],Equipment [NON-STAFF] - (*Please call [facility] once home to arrange delivery of CPM machine. ) Activity/Diet/Wound Care/Special Instructions: Discharge instructions: 1. Wound care and infection precautions, keep incision dry and covered while showering, no lotions, creams, moisturizers. No soaking, tubs, pools, hottubs. D o not scrub over the incision. 2. Weight-bear as tolerated with walker / cane until follow-up. 3. Ice and elevate when necessary. Do not exceed 20 minutes per hour with ice pack. 4. Utilize compression sleeve until seen at first follow up appointment. 5. Visiting nursing care. 6. Home physical therapy including home CPM. 7. Pain meds and anticoagulants per prescription. 8. Pain medication has potential to cause constipation. Increase oral fluid and fiber intake. Contact primary care provider if you have not had a bowel movement within 48 hours after discharge 9. No anti-inflammatory medication until discussed at first post operative visit, this including Motrin, Aleve, Mobic, Diclofenac. 10. Follow up in office at 2 weeks postop with Tian Paige PA-C / Rasheed Lopez PA-C 11. Follow up with your primary care doctor 7-10 days after discharge. 12. Contact [facility] with any questions, . Keep incision clean, dry, intact. While showering, cover mesh tape with Saran wrap/plastic bag. Keep mesh tape on until follow-up appointment in 2 weeks Medications: Homer 7.5 mg/325 mg; Colace; patient already has Eliquis at home for DVT ppx. Discharge Disposition: HOME WITH HOME HEALTH SERVICES
--- NOTE | 2021-04-09 10:26 | P.PN ---
Subjective Progress Note Date: 04/09/21 Principal diagnosis: Left knee osteoarthritis Patient was seen at bedside this morning lying semirecumbent in bed. Patient says he did get up overnight to the bathroom using walker and his knee felt okay. Patient says most the pain is located over the front of the knee at this time. Patient says physical therapy has not been by yet this morning. Patient says he does have a walker at home and is ready to go home today. Patient says he has been using since water. Patient denies chest pain, fever, shortness breath, nausea, change in vision, loss of bowel/bladder control. Objective - Vital Signs Vital signs: Vital Signs Temp 98.3 F 04/09/21 07:50 Pulse 69 04/09/21 07:50 Resp 15 04/09/21 07:50 BP 143/74 04/09/21 07:50 Pulse Ox 96 04/09/21 07:50 Intake & Output 04/08/21 04/09/21 04/09/21 18:59 06:59 18:59 Intake Total 1351 Output Total 50 400 275 Balance 1301 -400 -275 Weight 112.491 kg Intake: IV 1351 Output: Urine 400 275 Estimated Blood Loss 50 Other: Voiding Method Urinal - Exam Left knee: Incision is clean, dry, and intact. The mesh tape is in good condition. There is minimal soft tissue swelling and ecchymosis surrounding the medial and lateral aspects of the incision. Calf is soft, no tenderness with palpation. Plantar flexion, dorsiflexion, EHL, FHL are intact. Sensory exam to light touch throughout the extremity is intact, dorsal pedis pulses 2+. - Labs Labs: Abnormal Lab Results - Last 24 Hours (Table) 04/08/21 04/08/21 04/09/21 Range/Units 11:31 16:36 07:47 POC Glucose (mg/dL) 234 H 179 H 245 H (75-99) mg/dL Assessment and Plan Assessment: Left knee osteoarthritis Postoperative day 1 status post left total knee arthroplasty Plan: 1. Left knee osteoarthritis - left total knee arthroplasty performed yesterday, 04/08/2021. Patient stable at bedside this morning. Plan discharge home today with health services. 2. Appreciate medical management 3. Pain management - Sheldon 7.5 mg/325 mg; IV pain medication only if needed; going home with Sheldon 7.5 mg/325 mg 4. DVT prophylaxis - Lovenox in hospital; patient has Eliquis at home 5. GI prophylaxis - going home with Colace 6. Encourage incentive spirometer 7. PT/OT - weightbearing as tolerated with walker for assistance 8. Discharge planning - plan discharge home today with health services Time with Patient: Less than 30
[2021-04-09 10:51] LABS: Basophils # (A) 0.02 X 10*3/uL (0.00-0.10); Basophils % (A) 0.3 %; Eosinophils # (A) 0.03 X 10*3/uL (0.04-0.35); Eosinophils % (A) 0.4 %; HCT 33.4 % (39.6-50.0); HGB 12.5 g/dL (13.0-17.0); Lymphocytes % (A) 17.9 %; MCH 36.1 pg (27.0-32.0); MCHC 37.4 g/dL (32.0-37.0); MCV 96.5 fL (80.0-97.0); Mean Platelet Volume 11.3 fL (9.5-12.2); Monocytes # (A) 1.11 X 10*3/uL (0.20-1.00); Monocytes % (A) 14.2 %; Neutrophils # (A) 5.24 X 10*3/uL (1.80-7.70); Neutrophils % (A) 67.1 %; Platelet Count 210 X 10*3/uL (140-440); RBC 3.46 X 10*6/uL (4.40-5.60); WBC 7.81 X 10*3/uL (4.50-10.00)
[2021-04-09 11:08] LABS: Glucose,Whole Blood 227 mg/dL (75-99)
--- NOTE | 2021-04-09 12:52 | P.PN ---
Subjective Progress Note Date: 04/09/21 No new complaints. Doing well post-op. Has stiffness in knee. Medically cleared for discharge. Objective - Vital Signs Vital signs: Vital Signs Temp 98.3 F 04/09/21 07:50 Pulse 69 04/09/21 07:50 Resp 15 04/09/21 07:50 BP 143/74 04/09/21 07:50 Pulse Ox 96 04/09/21 07:50 Intake & Output 04/08/21 04/09/21 04/09/21 18:59 06:59 18:59 Intake Total 1351 Output Total 50 400 275 Balance 1301 -400 -275 Weight 112.491 kg Intake: IV 1351 Output: Urine 400 275 Estimated Blood Loss 50 Other: Voiding Method Urinal Urinal - Exam Gen: awake, alert HEENT: normocephalic, atraumatic, good hearing acuity, moist mucous membranes Resp: good air exchange, breathing comfortably with no accessory muscle use CVS: good distal perfusion x 4, GI: soft, NTTP, ND : no SPT, no CVAT, moffett catheter not present MSK: no pitting edema, no clubbing Neuro: non-focal, moving all extremities Psych: cooperative, euthymic mood - Labs CBC & Chem 7: 04/09/21 06:21 Labs: Abnormal Lab Results - Last 24 Hours (Table) 04/08/21 04/09/21 04/09/21 Range/Units 16:36 06:21 07:47 RBC 3.46 L (4.40-5.60) X 10*6/uL Hgb 12.5 L (13.0-17.0) g/dL Hct 33.4 L (39.6-50.0) % MCH 36.1 H (27.0-32.0) pg MCHC 37.4 H (32.0-37.0) g/dL Monocytes # 1.11 H (0.20-1.00) X 10*3/uL Eosinophils # 0.03 L (0.04-0.35) X 10*3/uL POC Glucose (mg/dL) 179 H 245 H (75-99) mg/dL 04/09/21 Range/Units 11:06 RBC (4.40-5.60) X 10*6/uL Hgb (13.0-17.0) g/dL Hct (39.6-50.0) % MCH (27.0-32.0) pg MCHC (32.0-37.0) g/dL Monocytes # (0.20-1.00) X 10*3/uL Eosinophils # (0.04-0.35) X 10*3/uL POC Glucose (mg/dL) 227 H (75-99) mg/dL Assessment and Plan Assessment: Chronic conditions: Hypertension, hyperlipidemia type II DM -Continue with home medications -Insulin sliding scale blood glucose monitoring Status post left total knee replacement -Management including pain control as per the surgery service We appreciate this opportunity to be involved in this patient's care. We will follow the patient with you. For any further questions, please not hesitate to c ontact the sound inpatient team.
[2021-04-09 13:54] VITALS: BP 156/83; PULSE 85; RESP 16; TEMP 99.2
== END 2021-04-09 17:07 | disposition home health service (06) ==
LOC: OR 11:01 → 4SSUR 18:14 → OR 04-09 17:07
PROVIDERS: ATTEND Orthopaedic Surgery
DX: M17.9 Osteoarthritis of knee, unspecified (principal); M17.12 Unilateral primary osteoarthritis, left knee; I10 Essential (primary) hypertension; E11.9 Type 2 diabetes mellitus without complications; G47.33 Obstructive sleep apnea (adult) (pediatric); E78.5 Hyperlipidemia, unspecified; Z96.651 Presence of right artificial knee joint; Z79.899 Other long term (current) drug therapy; Z87.891 Personal history of nicotine dependence
CPT/HCPCS: 97161; 64999; 64448; 76942; 85025; 88300; 87635; 73560; 27447; C1713 ×2; C1776; J2250; J2270; J1200; J0690 ×3; J2405; J3010 ×2; J1650; J2795 ×2; J2704